=== PATIENT | male | born 1965 | race Caucasian/White ===

== ENCOUNTER 2018-10-05 07:28 | Day surgery (SDC) | payer BC ==
[2018-09-28 12:53] VITALS: BMI 28.5
[2018-10-05] MEDS ORDERED: MIDAZOLAM HCL 2 MG/2 ML SINGLE DOSE VIAL ONE (08:28)
[2018-10-05] MEDS ORDERED: PROPOFOL 20 ML ONE ×2 (08:28)
[2018-10-05] MEDS ORDERED: ROCURONIUM BROMIDE 50 MG/5 ML SYRINGE ONE (08:28)
[2018-10-05] MEDS ORDERED: SUCCINYLCHOLINE CHLORIDE 200 MG/10 ML SYRINGE ONE (08:28)
[2018-10-05] MEDS ORDERED: LACTATED RINGERS SOLUTION 1,000 ML IV SCH (08:30)
[2018-10-05] MEDS ORDERED: EPINEPHrine 1:1,000 1 MG/1 ML - 30ML VIAL (INJECTION) ONE (08:36)
[2018-10-05] MEDS ORDERED: BUPIVACAINE HCL/PF 2.5 MG/ML - 30 ML VIAL IJ ONE (08:36)
--- NOTE | 2018-10-05 09:12 | OP ---
Operative Note - Note: Operative Date: 10/05/18 Pre-Operative Diagnosis: Right medial meniscus tear Operation: Right medial meniscectomy Post-Operative Diagnosis: Same as Pre-op Surgeon: Sj Almanzar Wood Filler: Alma Sanon Anesthesia: General Operative Report Dictated: Yes
[2018-10-05] MEDS ORDERED: EPHEDRINE SULFATE/0.9% NACL/PF 50 MG/10 ML SYRINGE NR ONE (09:51)
[2018-10-05] MEDS ORDERED: oxyCODONE HCL 5 MG TABLET ONE ×2 (10:44→12:04)
[2018-10-05] MEDS: oxyCODONE HCL 5 MG TABLET PO PRN ×2 (10:47→12:05)
[2018-10-05 12:21] VITALS: TEMP 97.6
--- NOTE | 2018-10-05 13:10 | OP ---
DATE OF OPERATION: 10/03/2018 PREOPERATIVE DIAGNOSIS: Right knee medial meniscus tear. POSTOPERATIVE DIAGNOSIS: Right knee medial meniscus tear. PROCEDURE: Right knee arthroscopy with partial medial meniscectomy. SURGEON: Sj Almanzar MD CAREER SERVICES REPRESENTATIVE: PETTY Spear ANESTHESIA: General. POSTOPERATIVE CONDITION: Stable. COMPLICATIONS: None. INDICATIONS: This is a pleasant gentleman who is suffering from medial knee pain. MRI demonstrated medial meniscus tear. Treatment options including nonoperative versus operative management were reviewed. Operative risks were reviewed in detail including bleeding, infection, neurovascular injury, need for further surgery, postoperative pain and stiffness, progression of osteoarthritis. We discussed medical risks such as heart attack, stroke, DVT, PE, and . We reviewed the postoperative rehabilitation protocol. I addressed all of the patient's questions and concerns. He voiced understanding and elected to proceed. DESCRIPTION OF PROCEDURE: The patient was brought to the operating room where general anesthetic was administered. The right lower extremity was then prepped and draped in the usual sterile fashion. A preoperative dose of antibiotics was given, and the usual time-out procedure was performed. The portal sites were then marked out and injected subcutaneously with 0.25% Marcaine. The lateral portal was established. The arthroscope was passed into the knee. Examination of the patellofemoral joint demonstrated some superficial fraying of the articular surface of the patella and trochlea. Passing the arthroscope into the notch demonstrated into ACL and PCL. The arthroscope was now passed medially. The medial portal was established under spinal needle localization. The medial compartment was examined demonstrating deep fissuring along the lateral 1/3 of the medial femoral condyle and diffuse fraying. No diffuse softening of the cartilage was noticed on probing. The meniscus had a complex tear noted extending along the entire posterior horn extending into the body. There was a large flap displaced anteriorly from the midbody extending in the anterior recess. Utilizing a combination of meniscal biters and a shaver, this was debrided down to a stable base. The arthroscope was now passed into the lateral compartment where here, again, softening was noted of the articular surface along with diffuse fraying. There was a very small free edge degeneration/tear of the lateral meniscus, which was felt to be too small for debridement. The probing of the meniscus demonstrating no additional tearing. At this point, the excess fluid was withdrawn from the joint. The portals were sutured using 3-0 nylon. Sterile dressings were placed. The patient was extubated and transferred to recovery room in stable condition. Cassandra HELLER/[id number]
[2018-10-05 13:31] VITALS: BP 136/82; PULSE 84
== END 2018-10-05 13:15 | disposition home or self-care (01) ==
LOC: FASU 07:28
PROVIDERS: ATTEND Orthopaedic Surgery Sports Medicine
PROC: 0SBC4ZZ Excision of Right Knee Joint, Percutaneous Endoscopic Approach (ICD-10-PCS; principal; 2018-10-05 09:33)
DX: S83.241A Other tear of medial meniscus, current injury, right knee, initial encounter (principal); X58.XXXA Exposure to other specified factors, initial encounter; Y93.9 Activity, unspecified; Y92.9 Unspecified place or not applicable
CPT/HCPCS: 94760